=== PATIENT | female | born 1965 | race Caucasian/White ===

== ENCOUNTER 2023-07-14 20:07 | Emergency (ER) | payer MEDICAID, SELFPAY ==
[2023-07-14 20:11] VITALS: BP 169/103; PULSE 83; RESP 16; TEMP 36.7; O2SAT 99; BMI 27.4
--- NOTE | 2023-07-14 20:18 | XR_ITS ---
The [address] [address] Patient Name: DUARTE TENORIO MRN: [id number] date: 1965 Sex: F Assigned Patient Location: ER Current Patient Location: ER Accession/Order Number: [id number] Exam Date: 07/14/2023 20:30 Report Date: 07/14/2023 21:13 At the request of: LISETTE MONTES Procedure: XR foot LT min 3V EXAM: XR foot LT min 3V HISTORY: pain COMPARISON: None. TECHNIQUE: 3 views of the left foot are performed. FINDINGS: There is no acute fracture. The bony structures are intact. There is a plantar calcaneal spur. 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 Unremarkable soft tissues. XR/XR foot LT min 3V IMPRESSION: No acute bony abnormality. Electronically authenticated by: MALISSA BHAGAT Date: 07/14/2023 21:13
--- NOTE | 2023-07-14 20:19 | ED.LOWEXI1 ---
HPI - Extremity Injury (Lower) General Chief Complaint: Extremity Injury, Lower Stated Complaint: FOOT INJURY Time Seen by Provider: 07/14/23 20:14 Source: patient Mode of arrival: walk-in History of Present Illness HPI Narrative: presents complaining of pain of the medial arch of her left foot for the past couple of months. Increased pain past week. No injury. States her job requires standing. When the pain starts it continues even when she is not standing on the foot. No response to OTC pain medications. No fever or injury no pain at this time Related Data Allergies Allergy/AdvReac Type Severity Reaction Status Date / Time No Known Drug Allergies Allergy Verified 07/14/23 20:16 Review of Systems ROS Status of ROS 10 or more systems reviewed and unremarkable except as noted in history and below Exam Constitutional Vital Signs, click to edit/add: Last Vital Signs Temp 98.1 F 07/14/23 20:11 Pulse 83 07/14/23 20:11 Resp 16 07/14/23 20:11 BP 169/103 H 07/14/23 20:11 Pulse Ox 99 07/14/23 20:11 O2 Del Method Room Air 07/14/23 20:11 Common normals: no apparent distress, average body habitus, oriented x3, no limitations, healthy appearing, alert and well nourished Eye Common normals: PERRL, EOMs intact bilaterally and conjunctivae normal Respiratory Common normals: normal respiratory effort, no retractions and no use of accessory muscles Cardio Common normals: regular rate, regular rhythm, S1 normal heart sound and S2 normal heart sound Extremity Other: focal enlargement at medial arch left foot. nontender Neuro Common normals: oriented x3, CN's II-XII intact bilaterally, moves all extremities, no focal motor deficits and no sensory deficits noted Psych Appearance: grossly normal Course Vital Signs Vital signs: Vital Signs Temperature 98.1 F 07/14/23 20:11 Pulse Rate 83 07/14/23 20:11 Respiratory Rate 16 07/14/23 20:11 Blood Pressure 169/103 H 07/14/23 20:11 Pulse Oximetry 99 07/14/23 20:11 Oxygen Delivery Method Room Air 07/14/23 20:11 Temperature 98.1 F 07/14/23 20:11 Pulse Rate 83 07/14/23 20:11 Respiratory Rate 16 07/14/23 20:11 Blood Pressure 169/103 H 07/14/23 20:11 Pulse Oximetry 99 07/14/23 20:11 Oxygen Delivery Method Room Air 07/14/23 20:11 MDM - Extremity Injury (Lower) MDM Narrative Medical decision making narrative: patient presents with recurrent pain of her left foot at the arch. focal enlargement at the medial arch that is currently not painful or tender. xray with calcaneal spur but this doesn't explain her arch pain. Inflammatory markers neg also. patient discharged home with a prescription of prednisone due to the focal swelling and is referred to Podiatry Discharge Plan Discharge Chief Complaint: Extremity Injury, Lower Clinical Impression: Acute pain of left foot Instructions: Arthralgia (ED) Additional Instructions: follow up with Podiatist Dr Pandey Referrals: Physician,Non-Staff, [Primary Care Provider] - 1 week
[2023-07-14 20:43] LABS: Erythrocyte Sedimentation Rate 15 mm/hr (<=30)
[2023-07-14 20:45] LABS: Basophils Percent Auto 0.4 % (0.2-2.0); Eosinophils Absolute Auto 0.1 10^3/uL (0.0-0.7); Hematocrit 40.7 % (36.0-48.0); Hemoglobin 13.5 g/dL (12.0-16.0); Immature Granulocytes Abs Auto 0.09 10^3/uL (0.00-0.03); Immature Granulocytes Pct Auto 0.9 % (0.0-0.5); Lymphocytes Absolute Auto 3.1 10^3/uL (1.2-3.8); Mean Corpuscular HGB Conc 33.2 g/dL (29.9-35.2); Mean Corpuscular Hemoglobin 30.3 pg (26.7-34.0); Mean Corpuscular Volume 91.3 fL (81.0-99.0); Mean Platelet Volume 9.6 fL (9.5-13.5); Monocytes Absolute Auto 0.7 10^3/uL (0.3-0.8); Monocytes Percent Auto 7.3 % (1.7-12.0); Neutrophils Absolute Auto 5.7 10^3/uL (1.4-6.5); Neutrophils Percent Auto 58.4 % (43.0-75.0); Platelet Count 265 10^3/uL (150-450); Red Blood Count 4.46 10^6/uL (4.20-5.40); Red Cell Distribution Width 13.2 % (11.0-15.0); White Blood Count 9.8 10^3/uL (4.0-11.0)
[2023-07-14 20:49] LABS: BUN Creatinine Ratio 17.6; C Reactive Protein <0.2 mg/dL (<=1.0); Calcium 9.1 mg/dL (8.5-10.1); Carbon Dioxide 32.8 mmol/L (21.0-32.0); Chloride 103 mmol/L (98-107); Estimated GFR (African America >60 (>=60); Estimated GFR (Non-African Ame 56 (>=60); Glucose 94 mg/dL (74-106); Sodium 143 mmol/L (136-145)
[2023-07-14 20:50] LABS: Potassium 2.8 mmol/L (3.5-5.1)
[2023-07-14] MEDS: POTASSIUM CHLORIDE 10 MEQ ER TABLET 40 MEQ PO (21:11)
== END 2023-07-14 21:52 | disposition home or self-care (01) ==
PROVIDERS: Emergency Provider Internal Medicine
DX: M79.672 Pain in left foot (principal)
CPT/HCPCS: 36415; 73630; 80048; 85025; 85652; 86140; 99284

== ENCOUNTER 2025-02-15 11:27 | Emergency (ER) | payer SELFPAY ==
[2025-02-15 11:35] VITALS: BP 184/95; PULSE 69; TEMP 36.8; O2SAT 98; BMI 29.8
[2025-02-15 12:13] LABS: Basophils Percent Auto 0.4 % (0.2-2.0); Eosinophils Absolute Auto 0.1 10^3/uL (0.0-0.7); Eosinophils Percent Auto 1.5 % (0.9-7.0); Hematocrit 40.8 % (36.0-48.0); Hemoglobin 13.9 g/dL (12.0-16.0); Immature Granulocytes Abs Auto 0.05 10^3/uL (0.00-0.03); Immature Granulocytes Pct Auto 0.6 % (0.0-0.5); Lymphocytes Absolute Auto 2.7 10^3/uL (1.2-3.8); Lymphocytes Percent Auto 34.6 % (20.5-60.0); Mean Corpuscular HGB Conc 34.1 g/dL (29.9-35.2); Mean Corpuscular Hemoglobin 30.6 pg (26.7-34.0); Mean Corpuscular Volume 89.9 fL (81.0-99.0); Mean Platelet Volume 9.8 fL (9.5-13.5); Monocytes Absolute Auto 0.5 10^3/uL (0.3-0.8); Monocytes Percent Auto 6.6 % (1.7-12.0); Neutrophils Absolute Auto 4.5 10^3/uL (1.4-6.5); Neutrophils Percent Auto 56.3 % (43.0-75.0); Platelet Count 263 10^3/uL (150-450); Red Blood Count 4.54 10^6/uL (4.20-5.40); White Blood Count 7.9 10^3/uL (4.0-11.0)
[2025-02-15 12:19] LABS: Alanine Aminotransferase 52 U/L (14-59); Albumin Globulin Ratio 1.1; Albumin Level 3.9 g/dL (3.4-5.0); Alkaline Phosphatase 115 U/L (46-116); Anion Gap 13.2; Aspartate Amino Transferase 22 U/L (15-37); BUN Creatinine Ratio 31.4; Bilirubin Total 0.5 mg/dL (0.2-1.0); Calcium 9.2 mg/dL (8.5-10.1); Carbon Dioxide 29.6 mmol/L (21.0-32.0); Chloride 104 mmol/L (98-107); Estimated GFR (African America >60 (>=60 mL/min/1.73m^2); Estimated GFR (Non-African Ame >60 (>=60 mL/min/1.73m^2); Globulin 3.7 g/dL; Glucose 97 mg/dL (74-106); Potassium 3.8 mmol/L (3.5-5.1); Sodium 143 mmol/L (136-145); Total Protein 7.6 g/dL (6.4-8.2)
[2025-02-15 12:45] LABS: Bilirubin Urine NEGATIVE (NEGATIVE); Blood Urine TRACE-I (NEGATIVE); Clarity Urine CLEAR (CLEAR); Color Urine LT. YELLOW (YELLOW); Glucose Urine UA NEGATIVE (NEGATIVE); Ketones Urine NEGATIVE (NEGATIVE); Leukocyte Esterase Urine NEGATIVE (NEGATIVE); Nitrite Urine NEGATIVE (NEGATIVE); Protein Urine NEGATIVE (NEG/TRACE); Urobilinogen Urine 0.2 EU/dL (0.2-1.0)
[2025-02-15 12:46] LABS: Urine Microscopic Indicated YES
--- NOTE | 2025-02-15 12:50 | US_ITS ---
The [address] [address] Patient Name: DUARTE TENORIO MRN: [id number] date: 1965 Sex: F Assigned Patient Location: ER Current Patient Location: ER Accession/Order Number: [id number] Exam Date: 02/15/2025 14:57 Report Date: 02/15/2025 14:58 At the request of: GARIMA LAWSON MD Procedure: US pelvis transvaginal The transabdominal transvaginal pelvic ultrasound HISTORY: Bilateral pelvic pain for one day Uterus anteverted. Uterus measures 7.2 x 3.6 x 5.4 cm. No focal uterine lesion identified. The tomographic The endometrium is 4 mm. The right ovary not visualized. Left ovary not visualized. The secondary overlying bowel gas. No adnexal mass or free fluid seen. US/US pelvis transvaginal IMPRESSION: Nonvisualization of the ovaries. No adnexal mass or free fluid. Unremarkable uterus and endometrial complex. Impression dictated by: José Gonzalez M.D. 02/15/2025 2:58 PM Dictation Location: [place] [address] Electronically authenticated by: [id number] Y Date: 02/15/2025 14:58
[2025-02-15 12:53] LABS: Bacteria Urine TRACE #/HPF (NONE SEEN); Cast Seen? NONE SEEN #/LPF (NONE SEEN); Crystals Seen? None Seen #/HPF (None Seen); Mucus Urine NONE SEEN (NONE SEEN); RBC Urine NONE SEEN #/HPF (0-2); Squamous Epithelial Cell Urine FEW #/LPF (NONE/RARE); Urine Culture Indicated NO; WBC Urine 0-2 #/HPF (NONE SEEN)
[2025-02-15 14:35] VITALS: BP 176/92; PULSE 84; O2SAT 98
--- NOTE | 2025-02-15 16:16 | ED_ITS ---
HPI - Abdominal Pain General Chief Complaint: Abdominal Pain Stated Complaint: ABDOMINAL PAIN Time Seen by Provider: 02/15/25 11:47 Source: patient Mode of arrival: walk-in History of Present Illness HPI narrative: Patient is 59-year-old female coming to the ER with suprapubic cramping pain that came almost an hour before arrival for few seconds, by the time the patient came to the ER she was already feeling better, but she mentioned that the pain was severe associated with nothing at nausea or vomiting or any diarrhea or constipation, patient had no fever or any chills she also does not have any vaginal discharge or bleeding Last menstruation was 4 years ago Related Data Previous Rx's ?Medication ?Instructions ?Recorded dicyclomine 20 mg tablet 20 mg PO QID PRN abdominal p ain 02/15/25 #10 tabs Allergies Allergy/AdvReac Type Severity Reaction Status Date / Time No Known Drug Allergies Allergy Verified 07/14/23 20:16 Review of Systems ROS Status of ROS 10 or more systems reviewed and unremark able except as noted in history and below PFSH PFSH Social History Little interest or pleasure in doing things: not at all Feeling down, depressed, or hopeless: not at all Exam Narrative Exam Narrative: Nurses notes and vital signs reviewed and patient is not hypoxic. General: Well-appearing and in no apparent distress. Skin: Warm, dry, no pallor noted. No rash. Head: Normocephalic, atraumatic. Neck: Supple, non-tender. Eye: Pupils are equal, round and EOMI. No scleral icterus. Cardiovascular: Regular Rate and Rhythm without murmur, gallop or rub. Respiratory: No accessory muscle use or respiratory distress. Lungs are clear to auscultation, no wheezing, rales or rhonchi Chest Wall: no tenderness Back: No midline thoracic or lumbar vertebral tenderness. No CVA tenderness Musculoskeletal: normal ROM, no calf or popliteal tenderness, no lower extremity edema/swelling GI: Abdomen is soft, non-distended. Normal bowel sounds. No masses appreciated. No tenderness to palpation. No rebound, guarding, or rigidity noted. Neurological: A&O x4. No cranial nerve dysfunction observed. No truncal ataxia. Moves all extremities. Sensation intact. Psychiatric: Cooperative and interactive. Normal mood and affect. Constitutional Vital Signs, click to edit/add: Last Vital Signs Temp 98.2 F 02/15/25 11:35 Pulse 84 02/15/25 14:35 Resp 18 02/15/25 14:35 BP 176/92 H 02/15/25 14:35 Pulse Ox 98 02/15/25 14:35 O2 Del Method Room Air 02/15/25 14:35 Course Vital Signs Vital signs: Vital Signs Temperature 98.2 F 02/15/25 11:35 Pulse Rate 69 02/15/25 11:35 Respiratory Rate 18 02/15/25 11:35 Blood Pressure 184/95 H 02/15/25 11:35 Pulse Oximetry 98 02/15/25 11:35 Oxygen Delivery Method Room Air 02/15/25 11:35 Temperature 98.2 F 02/15/25 11:35 Pulse Rate 84 02/15/25 14:35 Respiratory Rate 18 02/15/25 14:35 Blood Pressure 176/92 H 02/15/25 14:35 Pulse Oximetry 98 02/15/25 14:35 Oxygen Delivery Method Room Air 02/15/25 14:35 MDM - Abdominal Pain MDM Narrative Medical decision making narrative: The patient abdominal examination was completely benign and she did not complain of any pain when she was in the ER Her CBC and chemistry as well as urine showed no acute pathology The patient also had ultrasound pelvic that showed no acute pathology as well The patient is just to continue supportive care cramping could be for multiple reasons she was given only Bentyl here in the ER discharged home with instruction to monitor her symptoms in case of any increasing pain or fever she is to come back to the ER She is also to follow-up with [facility] as outpatient The patient is to follow up with primary care physician in next 2-3 days or to return to the emergency department should any of the signs or symptoms worsen or new symptoms develop. The patient agrees with the following Diagnosis and Treatment plan and the patient will be discharged home. Lab Data Labs: Lab Results 02/15/25 02/15/25 Range/Units 11:45 12:30 WBC 7.9 (4.0-11.0) 10^3/uL RBC 4.54 (4.20-5.40) 10^6/uL Hgb 13.9 (12.0-16.0) g/dL Hct 40.8 (36.0-48.0) % MCV 89.9 (81.0-99.0) fL MCH 30.6 (26.7-34.0) pg MCHC 34.1 (29.9-35.2) g/dL RDW 13.0 (11.0-15.0) % Plt Count 263 (150-450) 10^3/uL MPV 9.8 (9.5-13.5) fL Neut % (Auto) 56.3 (43.0-75.0) % Lymph % (Auto) 34.6 (20.5-60.0) % [place] % (Auto) 6.6 (1.7-12.0) % Eos % (Auto) 1.5 (0.9-7.0) % Baso % (Auto) 0.4 (0.2-2.0) % Neut # (Auto) 4.5 (1.4-6.5) 10^3/uL Lymph # (Auto) 2.7 (1.2-3.8) 10^3/uL [place] # (Auto) 0.5 (0.3-0.8) 10^3/uL Eos # (Auto) 0.1 (0.0-0.7) 10^3/uL Baso # (Auto) 0.0 (0.0-0.1) 10^3/uL Abs Immat Gran (auto) 0.05 H (0.00-0.03) 10^3/uL Imm/Tot Granulo (auto) 0.6 H (0.0-0.5) % Sodium 143 (136-145) mmol/L Potassium 3.8 (3.5-5.1) mmol/L Chloride 104 (98-107) mmol/L Carbon Dioxide 29.6 (21.0-32.0) mmol/L Anion Gap 13.2 BUN 22.0 H (7.0-18.0) mg/dL Creatinine 0.70 (0.55-1.02) mg/dL Est GFR ( Amer) >60 (>=60 mL/min/1.73m^2) Est GFR (Non-Af Amer) >60 (>=60 mL/min/1.73m^2) BUN/Creatinine Ratio 31.4 Glucose 97 (74-106) mg/dL Calcium 9.2 (8.5-10.1) mg/dL Total Bilirubin 0.5 (0.2-1.0) mg/dL AST 22 (15-37) U/L ALT 52 (14-59) U/L Alkaline Phosphatase 115 (46-116) U/L Total Protein 7.6 (6.4-8.2) g/dL Albumin 3.9 (3.4-5.0) g/dL Globulin 3.7 g/dL Albumin/Globulin Ratio 1.1 Urine Color Lt. yellow (YELLOW) Urine Clarity Clear (CLEAR) Urine pH 6.0 (5.0-9.0) Ur Specific [place] 1.010 (1.005-1.025) Urine Protein Negative (NEG/TRACE) mg/dL Urine Glucose (UA) Negative (NEGATIVE) mg/dL Urine Ketones Negative (NEGATIVE) mg/dL Urine Occult Blood Trace-i (NEGATIVE) Urine Nitrite Negative (NEGATIVE) Urine Bilirubin Negative (NEGATIVE) Urine Urobilinogen 0.2 (0.2-1.0) EU/dL Ur Leukocyte Esterase Negative (NEGATIVE) Urine RBC None seen (0-2) #/HPF Urine WBC 0-2 A (NONE SEEN) #/HPF Ur Squamous Epith Cells Few A (NONE/RARE) #/LPF Urine Crystals None seen (None Seen) #/HPF Urine Bacteria Trace A (NONE SEEN) #/HPF Urine Casts None seen (NONE SEEN) #/LPF Urine Mucus None seen (NONE SEEN) Ur Culture Indicated? No Discharge Plan Discharge Chief Complaint: Abdominal Pain Clinical Impression: Abdominal pain Patient Disposition: Home, Self-Care Condition: Good Prescriptions / Home Meds: New dicyclomine 20 mg tablet 20 mg PO QID PRN (Reason: abdominal pain) Qty: 10 0RF Print Language: Kyrgyz Instructions: Acute Abdominal Pain (ED) Referrals: Physician,Non-Staff, [Primary Care Provider] - 1 week Discharge Date/Time: 02/15/25 15:51
== END 2025-02-15 15:51 | disposition home or self-care (01) ==
PROVIDERS: Emergency Provider Emergency Medicine
DX: R10.84 Generalized abdominal pain (principal); R10.2 Pelvic and perineal pain
CPT/HCPCS: 36415; 76830; 80053; 81001; 85025; 99285